=== PATIENT | male | born 1965 | race Caucasian/White ===

== ENCOUNTER 2022-10-25 13:25 | Inpatient (IN) | payer OTHER ==
[2022-10-25 14:30] VITALS: BMI 18.4
[2022-10-25] MEDS ORDERED: BENZONATATE 200 MG CAPSULE PO PRN (16:38)
[2022-10-25] MEDS ORDERED: BENZOCAINE/MENTHOL (CHLORASEPTIC ) LOZENGE MM PRN (16:38)
[2022-10-25] MEDS ORDERED: NICOTINE 10 MG CARTRIDGE (INHALER) IH PRN (16:38)
[2022-10-25] MEDS ORDERED: AMMONIUM LACTATE 12% LOTION 225 GM BOTTLE TP PRN (16:38)
[2022-10-25] MEDS ORDERED: MAGNESIUM HYDROX 2400MG/30ML ORAL SUSPENSION 30 ML CUP PO PRN (16:38)
[2022-10-25] MEDS ORDERED: hydrOXYzine PAMOATE 25 MG CAPSULE (FP) PO PRN (16:38)
[2022-10-25] MEDS ORDERED: ACETAMINOPHEN 325 MG TABLET (FP) PO PRN (16:38)
[2022-10-25] MEDS ORDERED: NALOXONE HCL (KLOXXADO) 8 MG SPRAY NS PRN (16:38)
[2022-10-25] MEDS ORDERED: NICOTINE POLACRILEX 2 MG GUM BUC PRN (16:38)
[2022-10-25] MEDS ORDERED: COLLOIDAL OATMEAL 1 BAR EACH TP PRN (16:38)
[2022-10-25] MEDS ORDERED: P-EPHED 60MG/TRIPROLIDI 2.5MG TABLET PO PRN (16:38)
[2022-10-25] MEDS ORDERED: POLYETHYLENE GLYCOL (HEALTHYLAX) 3350 17 GM PACKET PO PRN (16:38)
[2022-10-25] MEDS ORDERED: NALOXONE HCL 0.4 MG/ML VIAL IM PRN (16:38)
[2022-10-25] MEDS ORDERED: LOPERAMIDE HCL 2 MG CAPSULE PO PRN (16:38)
[2022-10-25] MEDS ORDERED: MAG HYDROX/AL HYDROX/SIMETH 30 ML UNIT-DOSE CUP PO PRN (16:38)
[2022-10-25] MEDS ORDERED: IBUPROFEN 400 MG TABLET (FP) PO PRN (16:38)
[2022-10-25] MEDS ORDERED: guaiFENesin 600 MG TABLET.ER (FP) PO PRN (16:38)
[2022-10-25] MEDS ORDERED: IBUPROFEN 600 MG TABLET (FP) PO PRN (16:38)
[2022-10-25] MEDS ORDERED: TUBERCULIN PPD 5 TU/0.1ML SYRINGE (IN PATIENT USE ONLY) ID ONE (20:00)
[2022-10-25] MEDS ORDERED: DRONABINOL 2.5 MG CAPSULE PO SCH (21:00)
[2022-10-25] MEDS: THIAMINE HCL 100 MG TABLET (FP) PO SCH (23:08)
[2022-10-25] MEDS: MELATONIN 5 MG TABLETS PO SCH (23:08)
[2022-10-26] MEDS: BICTEGRAV/EMTRICIT/TENOFOV (BIKTARVY) 50-200-25 MG TABLET PO SCH (09:30)
[2022-10-26] MEDS: PRENATAL VITAMINS W/ FOLIC ACID TABLET (FP) PO SCH (09:30)
[2022-10-26] MEDS ORDERED: methaDONE HCL 10 MG TABLET PO ONE (09:38)
[2022-10-26] MEDS ORDERED: BICTEGRAV/EMTRICIT/TENOFOV (BIKTARVY) 50-200-25 MG TABLET PO SCH (10:00)
[2022-10-26] MEDS: methaDONE 40 MG, methaDONE 10 MG PO SCH (10:12)
[2022-10-26 11:04] LABS: POTASSIUM 3.8 mmol/L (3.5-5.1)
[2022-10-26 11:06] LABS: HEMATOCRIT 34.1 % (35.4-49); HEMOGLOBIN 11.4 GM/dL (11.7-16.9); MCH 30.9 pg (25.7-33.7); MCHC 33.3 g/dl (32.0-35.9); MEAN CELL VOLUME 92.8 fl (80-96); MEAN PLT VOLUME 7.6 fl (7.5-11.1); PLATELET COUNT 126 10^3/uL (134-434); RBC 3.67 M/mm3 (4.00-5.60); RDW 15.6 % (11.9-15.9); WHITE BLOOD COUNT 3.2 K/mm3 (4.0-10.0)
[2022-10-26 11:14] LABS: ALBUMIN 3.1 g/dl (3.4-5.0); BILIRUBIN,TOTAL 0.6 mg/dL (0.2-1); BLOOD UREA NITROGEN 13.7 mg/dL (7-18); CALCIUM 8.9 mg/dL (8.5-10.1); CREATININE 0.8 mg/dL (0.55-1.3); TOT PROT 6.9 g/dl (6.4-8.2)
[2022-10-26] MEDS: DRONABINOL 2.5 MG CAPSULE PO SCH (12:06)
[2022-10-26] MEDS: THIAMINE HCL 100 MG TABLET (FP) PO SCH (21:46)
[2022-10-26] MEDS: MELATONIN 5 MG TABLETS PO SCH (21:46)
[2022-10-27] MEDS ORDERED: methaDONE HCL 10 MG TABLET PO SCH (06:00)
[2022-10-27] MEDS: methaDONE 40 MG, methaDONE 10 MG PO SCH (06:41)
[2022-10-27] MEDS: BICTEGRAV/EMTRICIT/TENOFOV (BIKTARVY) 50-200-25 MG TABLET PO SCH (09:40)
[2022-10-27] MEDS: DRONABINOL 2.5 MG CAPSULE PO SCH (09:40)
[2022-10-27] MEDS: PRENATAL VITAMINS W/ FOLIC ACID TABLET (FP) PO SCH (09:40)
[2022-10-27] MEDS: THIAMINE HCL 100 MG TABLET (FP) PO SCH (22:42)
[2022-10-27] MEDS: MELATONIN 5 MG TABLETS PO SCH (22:42)
[2022-10-28] MEDS: methaDONE 40 MG, methaDONE 10 MG PO SCH (06:27)
[2022-10-28] MEDS: PRENATAL VITAMINS W/ FOLIC ACID TABLET (FP) PO SCH (09:27)
[2022-10-28] MEDS: DRONABINOL 2.5 MG CAPSULE PO SCH (09:27)
[2022-10-28] MEDS: BICTEGRAV/EMTRICIT/TENOFOV (BIKTARVY) 50-200-25 MG TABLET PO SCH (09:28)
[2022-10-28] MEDS: MELATONIN 5 MG TABLETS PO SCH (21:04)
[2022-10-28] MEDS: THIAMINE HCL 100 MG TABLET (FP) PO SCH (21:04)
[2022-10-29] MEDS: methaDONE 40 MG, methaDONE 10 MG PO SCH (08:25)
[2022-10-29] MEDS: DRONABINOL 2.5 MG CAPSULE PO SCH (09:54)
[2022-10-29] MEDS: BICTEGRAV/EMTRICIT/TENOFOV (BIKTARVY) 50-200-25 MG TABLET PO SCH (09:54)
[2022-10-29] MEDS: PRENATAL VITAMINS W/ FOLIC ACID TABLET (FP) PO SCH (09:54)
[2022-10-29 12:03] LABS: PH,URINE 6.5 (5.0-8.0); URINE APPEARANCE CLEAR; URINE BILIRUBIN NEGATIVE (NEGATIVE); URINE COLOR YELLOW; URINE GLUCOSE (UA) NEGATIVE (NEGATIVE); URINE KETONE NEGATIVE (NEGATIVE); URINE LEUK ESTERASE NEGATIVE (NEGATIVE); URINE NITRITE NEGATIVE (NEGATIVE); URINE PROTEIN NEGATIVE (NEGATIVE); URINE UROBILINOGEN 0.2 mg/dL (0.2-1.0)
[2022-10-29] MEDS: THIAMINE HCL 100 MG TABLET (FP) PO SCH (22:12)
[2022-10-29] MEDS: MELATONIN 5 MG TABLETS PO SCH (22:12)
[2022-10-30] MEDS: methaDONE 40 MG, methaDONE 10 MG PO SCH (09:40)
[2022-10-30] MEDS: DRONABINOL 2.5 MG CAPSULE PO SCH (09:40)
[2022-10-30] MEDS: PRENATAL VITAMINS W/ FOLIC ACID TABLET (FP) PO SCH (09:40)
[2022-10-30] MEDS: BICTEGRAV/EMTRICIT/TENOFOV (BIKTARVY) 50-200-25 MG TABLET PO SCH (09:40)
[2022-10-30] MEDS ORDERED: ONDANSETRON *ODT* 4 MG TABLET SL PRN ×2 (12:36→12:49)
[2022-10-30] MEDS ORDERED: LOPERAMIDE HCL 2 MG CAPSULE PO PRN (12:36)
[2022-10-30] MEDS ORDERED: IBUPROFEN 400 MG TABLET (FP) PO PRN (12:36)
[2022-10-30] MEDS ORDERED: DICYCLOMINE HCL 10 MG CAPSULE PO PRN (12:36)
[2022-10-30] MEDS ORDERED: BENZONATATE 200 MG CAPSULE PO PRN (12:36)
[2022-10-30] MEDS ORDERED: IBUPROFEN 600 MG TABLET (FP) PO PRN (12:36)
[2022-10-30] MEDS ORDERED: BISMUTH SUBSALICYLATE 524 MG/30 ML PO PRN (12:36)
[2022-10-30] MEDS ORDERED: guaiFENesin 600 MG TABLET.ER (FP) PO PRN (12:36)
[2022-10-30] MEDS: METHOCARBAMOL 500 MG TABLET PO PRN ×2 (14:14→21:07)
[2022-10-30] MEDS: FERROUS SO4 325 MG TABLET (FP) PO SCH (14:14)
[2022-10-30] MEDS: THIAMINE HCL 100 MG TABLET (FP) PO SCH (21:06)
[2022-10-30] MEDS: MELATONIN 5 MG TABLETS PO SCH (21:06)
[2022-10-31 07:04] VITALS: RESP 18
[2022-10-31] MEDS: methaDONE 40 MG, methaDONE 10 MG PO SCH (10:21)
[2022-10-31] MEDS: FERROUS SO4 325 MG TABLET (FP) PO SCH (10:23)
[2022-10-31] MEDS: DRONABINOL 2.5 MG CAPSULE PO SCH (10:23)
[2022-10-31] MEDS: BICTEGRAV/EMTRICIT/TENOFOV (BIKTARVY) 50-200-25 MG TABLET PO SCH (10:23)
[2022-10-31] MEDS: PRENATAL VITAMINS W/ FOLIC ACID TABLET (FP) PO SCH (10:23)
[2022-10-31] MEDS: THIAMINE HCL 100 MG TABLET (FP) PO SCH (22:06)
[2022-10-31] MEDS: MELATONIN 5 MG TABLETS PO SCH (22:06)
[2022-11-01] MEDS: BICTEGRAV/EMTRICIT/TENOFOV (BIKTARVY) 50-200-25 MG TABLET PO SCH (09:47)
[2022-11-01] MEDS: DRONABINOL 2.5 MG CAPSULE PO SCH (09:47)
[2022-11-01] MEDS: FERROUS SO4 325 MG TABLET (FP) PO SCH (09:47)
[2022-11-01] MEDS: PRENATAL VITAMINS W/ FOLIC ACID TABLET (FP) PO SCH (09:48)
[2022-11-01] MEDS: methaDONE 40 MG, methaDONE 10 MG PO SCH (10:35)
[2022-11-01] MEDS: MELATONIN 5 MG TABLETS PO SCH (21:42)
[2022-11-01] MEDS: THIAMINE HCL 100 MG TABLET (FP) PO SCH (21:42)
[2022-11-02 07:08] VITALS: TEMP 97.7
[2022-11-02 09:12] VITALS: BP 90/58; PULSE 96
[2022-11-02] MEDS: FERROUS SO4 325 MG TABLET (FP) PO SCH (09:21)
[2022-11-02] MEDS: methaDONE 40 MG, methaDONE 10 MG PO SCH (09:21)
[2022-11-02] MEDS: DRONABINOL 2.5 MG CAPSULE PO SCH (09:21)
[2022-11-02] MEDS: BICTEGRAV/EMTRICIT/TENOFOV (BIKTARVY) 50-200-25 MG TABLET PO SCH (09:21)
[2022-11-02] MEDS: PRENATAL VITAMINS W/ FOLIC ACID TABLET (FP) PO SCH (09:21)
== END 2022-11-02 09:35 | disposition home or self-care (01) | DRG 772 ==
LOC: YASAS 13:25 → Y5N 17:56
PROVIDERS: ADMIT Allergy & Immunology; ATTEND Psychiatry & Neurology Pain Medicine
PROC: HZ42ZZZ Group Counseling for Substance Abuse Treatment, Cognitive-Behavioral (ICD-10-PCS; principal; 2022-10-25)
DX: F11.20 Opioid dependence, uncomplicated (principal); F12.20 Cannabis dependence, uncomplicated; F17.210 Nicotine dependence, cigarettes, uncomplicated; F19.24 Other psychoactive substance dependence with psychoactive substance-induced mood disorder; B20 Human immunodeficiency virus [HIV] disease; G62.9 Polyneuropathy, unspecified; D64.9 Anemia, unspecified; B18.2 Chronic viral hepatitis C; R63.4 Abnormal weight loss; Z68.1 Body mass index [BMI] 19.9 or less, adult; Z87.01 Personal history of pneumonia (recurrent); Z88.6 Allergy status to analgesic agent; Z28.310 Unvaccinated for COVID-19; Z28.9 Immunization not carried out for unspecified reason
CPT/HCPCS: 36415; 71045-TC-FY; 80053; 81003; 85027; 86780; 87635; 93005; 93010

== ENCOUNTER 2023-03-28 16:15 | Inpatient (IN) | payer OTHER ==
[2023-03-28 17:39] VITALS: BMI 18.8
[2023-03-28] MEDS ORDERED: POLYETHYLENE GLYCOL (HEALTHYLAX) 3350 17 GM PACKET PO PRN (23:36)
[2023-03-28] MEDS ORDERED: guaiFENesin 600 MG TABLET.ER (FP) PO PRN (23:36)
[2023-03-28] MEDS ORDERED: NALOXONE HCL (KLOXXADO) 8 MG SPRAY NS PRN (23:36)
[2023-03-28] MEDS ORDERED: COLLOIDAL OATMEAL 1 BAR EACH TP PRN (23:36)
[2023-03-28] MEDS ORDERED: P-EPHED 60MG/TRIPROLIDI 2.5MG TABLET PO PRN (23:36)
[2023-03-28] MEDS ORDERED: MAG HYDROX/AL HYDROX/SIMETH 30 ML UNIT-DOSE CUP PO PRN (23:36)
[2023-03-28] MEDS ORDERED: MAGNESIUM HYDROX 2400MG/30ML ORAL SUSPENSION 30 ML CUP PO PRN (23:36)
[2023-03-28] MEDS ORDERED: LOPERAMIDE HCL 2 MG CAPSULE PO PRN (23:36)
[2023-03-28] MEDS ORDERED: BENZOCAINE/MENTHOL (CHLORASEPTIC ) LOZENGE MM PRN (23:36)
[2023-03-28] MEDS ORDERED: BENZONATATE 200 MG CAPSULE PO PRN (23:36)
[2023-03-28] MEDS ORDERED: NALOXONE HCL 0.4 MG/ML VIAL IM PRN (23:36)
[2023-03-29] MEDS: MELATONIN 5 MG TABLETS PO SCH ×2 (01:05→21:57)
[2023-03-29] MEDS: THIAMINE HCL 100 MG TABLET (FP) PO SCH ×2 (01:05→21:57)
[2023-03-29 08:53] LABS: POTASSIUM 3.9 mmol/L (3.5-5.1)
[2023-03-29 08:58] LABS: HEMATOCRIT 30.9 % (35.4-49); HEMOGLOBIN 10.2 GM/dL (11.7-16.9); MCH 30.6 pg (25.7-33.7); MEAN CELL VOLUME 92.7 fl (80-96); MEAN PLT VOLUME 6.7 fl (7.5-11.1); PLATELET COUNT 174 10^3/uL (134-434); RBC 3.33 M/mm3 (4.00-5.60); RDW 14.9 % (11.9-15.9); WHITE BLOOD COUNT 4.7 K/mm3 (4.0-10.0)
[2023-03-29 09:00] LABS: ALBUMIN 2.5 g/dl (3.4-5.0)
[2023-03-29 09:01] LABS: BLOOD UREA NITROGEN 12.2 mg/dL (7-18)
[2023-03-29 09:04] LABS: CREATININE 0.6 mg/dL (0.55-1.3)
[2023-03-29 09:05] LABS: TOT PROT 6.4 g/dl (6.4-8.2)
[2023-03-29 09:09] LABS: EPI CELLS 10 /uL (0-25.1); HYALINE CASTS 1 /uL (0-3.1); PH,URINE 6.5 (5.0-8.0); URINE APPEARANCE CLEAR; URINE BACTERIA 9 /uL (0-1359); URINE BILIRUBIN 1+ (NEGATIVE); URINE COLOR DK YELLOW; URINE GLUCOSE (UA) NEGATIVE (NEGATIVE); URINE KETONE TRACE (NEGATIVE); URINE LEUK ESTERASE TRACE (NEGATIVE); URINE NITRITE NEGATIVE (NEGATIVE); URINE PROTEIN TRACE (NEGATIVE); URINE RBC 8 /uL (0-23.9); URINE WBC 6 /uL (0-25.8)
[2023-03-29] MEDS ORDERED: methaDONE HCL 10 MG TABLET PO ONE (09:42)
[2023-03-29] MEDS ORDERED: methaDONE 40 MG, methaDONE 10 MG PO ONE (09:52)
[2023-03-29] MEDS: PRENATAL VITAMINS W/ FOLIC ACID TABLET (FP) PO SCH (10:37)
[2023-03-30] MEDS ORDERED: methaDONE 40 MG, methaDONE 10 MG PO SCH (06:00)
[2023-03-30] MEDS ORDERED: methaDONE HCL 10 MG TABLET PO SCH (06:00)
[2023-03-30] MEDS: PRENATAL VITAMINS W/ FOLIC ACID TABLET (FP) PO SCH (10:37)
[2023-03-30] MEDS ORDERED: methaDONE HCL 10 MG TABLET PO ONE (13:02)
[2023-03-30] MEDS ORDERED: methaDONE 40 MG, methaDONE 10 MG PO ONE (13:30)
[2023-03-30] MEDS: THIAMINE HCL 100 MG TABLET (FP) PO SCH (21:33)
[2023-03-30] MEDS: MELATONIN 5 MG TABLETS PO SCH (21:33)
[2023-03-31] MEDS: PRENATAL VITAMINS W/ FOLIC ACID TABLET (FP) PO SCH (10:27)
[2023-03-31] MEDS ORDERED: methaDONE 40 MG, methaDONE 10 MG PO SCH (12:00)
[2023-03-31] MEDS: MELATONIN 5 MG TABLETS PO SCH (21:47)
[2023-03-31] MEDS: THIAMINE HCL 100 MG TABLET (FP) PO SCH (21:47)
[2023-04-01 07:01] VITALS: BP 121/70; PULSE 63; RESP 16; TEMP 98.3
[2023-04-01] MEDS ORDERED: methaDONE HCL 10 MG TABLET PO ONE (09:11)
[2023-04-01] MEDS: PRENATAL VITAMINS W/ FOLIC ACID TABLET (FP) PO SCH (09:33)
[2023-04-01] MEDS ORDERED: methaDONE 40 MG, methaDONE 10 MG PO ONE (09:45)
[2023-04-01] MEDS ORDERED: methaDONE 40 MG, methaDONE 10 MG PO SCH (12:00)
== END 2023-04-01 09:48 | disposition home or self-care (01) | DRG 772 ==
LOC: YASAS 16:15 → Y5N 23:52
PROVIDERS: ADMIT Allergy & Immunology; ATTEND Psychiatry & Neurology Pain Medicine
PROC: HZ42ZZZ Group Counseling for Substance Abuse Treatment, Cognitive-Behavioral (ICD-10-PCS; principal; 2023-03-28)
DX: F11.20 Opioid dependence, uncomplicated (principal); F14.20 Cocaine dependence, uncomplicated; F12.20 Cannabis dependence, uncomplicated; F17.210 Nicotine dependence, cigarettes, uncomplicated; F19.24 Other psychoactive substance dependence with psychoactive substance-induced mood disorder; Z21 Asymptomatic human immunodeficiency virus [HIV] infection status; Z86.19 Personal history of other infectious and parasitic diseases; Z88.6 Allergy status to analgesic agent; Z28.310 Unvaccinated for COVID-19; Z28.9 Immunization not carried out for unspecified reason
CPT/HCPCS: 36415; 80053; 81003; 85027; 86780; 87635